=== PATIENT | male | born 1985 | race Caucasian/White ===

== ENCOUNTER 2025-10-05 15:32 | Emergency (ER) | payer SELFPAY ==
[~2025-10-05] VITALS: Ht 165.1 cm; Wt 97.5 kg
[2025-10-05 15:49] VITALS: BP 143/96
[2025-10-05] MEDS ORDERED: TDAP DIPH,PERTUSS,TET VAC/PF 0.5 ML DISP.SYRIN IM ONE (16:31)
[2025-10-05] MEDS ORDERED: CLINDAMYCIN HCL 150 MG CAPSULE ONE (16:31)
[2025-10-05] MEDS: TDAP DIPH,PERTUSS,TET VAC/PF 0.5 ML DISP.SYRIN IM ONE (16:34)
[2025-10-05] MEDS: CLINDAMYCIN HCL 150 MG CAPSULE PO ONE (16:35)
[2025-10-05] MEDS ORDERED: HYDR-3972 PO (16:57)
[2025-10-05] MEDS ORDERED: CLIN-188 PO (17:00)
[2025-10-05 17:42] VITALS: BP 127/89; O2SAT 99
[2025-10-06] MEDS ORDERED: SULF1TAB48 PO (23:29)
== END 2025-10-05 17:47 | disposition home or self-care (01) ==
LOC: ER 15:32
DX: L02.511 Cutaneous abscess of right hand (principal)
CPT/HCPCS: 90715; A4606; A4663

== ENCOUNTER 2025-10-06 22:07 | Emergency (ER) | payer SELFPAY ==
[~2025-10-06] VITALS: Ht 165.1 cm; Wt 97.5 kg
[2025-10-06 22:07] VITALS: BP 159/118
[~2025-10-06 22:07] MED LIST: CLIN-188 PO; HYDR-3972 PO
[2025-10-06] MEDS ORDERED: LIDOCAINE 1%-EPI 1:100,000 20 ML VIAL ONE (22:33)
[2025-10-06] MEDS ORDERED: LIDOCAINE 2%-EPI 1:100,000 20 ML VIAL ONE (22:34)
[2025-10-06] MEDS: LIDOCAINE 2%-EPI 1:100,000 20 ML VIAL IJ ONE (22:35)
[2025-10-06] MEDS ORDERED: SULFAMETH/TRIMETH 800/160 MG TABLET ONE (23:12)
[2025-10-06] MEDS: SULFAMETH/TRIMETH 800/160 MG TABLET PO ONE (23:15)
[2025-10-06] MEDS ORDERED: SULF1TAB48 PO (23:29)
[2025-10-06] MEDS ORDERED: HYDROCODONE/APAP 5-325MG TABLET ONE (23:44)
[2025-10-06] MEDS: HYDROCODONE/APAP 5-325MG TABLET PO ONE (23:45)
[2025-10-07 00:21] VITALS: BP 148/99; O2SAT 98
== END 2025-10-07 00:22 | disposition home or self-care (01) ==
LOC: ER 22:13
DX: L02.511 Cutaneous abscess of right hand (principal)
CPT/HCPCS: A4606; A4663; J3490